=== PATIENT | male | born 1990 | race Caucasian/White ===

== ENCOUNTER 2021-02-18 01:00 | Emergency (ER) | payer SELFPAY ==
[2021-02-18 01:35] LABS: BASOPHIL 0.6 % (0-2); HCT 35.9 % (42.0-52.0); HGB 12.7 g/dl (13.2-18.0); LYMPHOCYTE 38.9 % (15-48); MCH 31.1 pg (25.0-31.0); MCHC 35.4 g/dL (32.0-36.0); MCV 87.8 fL (78.0-100.0); MONOCYTE 10.6 % (0-12); MPV 10.7 fL (6.0-9.5); NEUTROPHIL 46.6 % (41-80); NRBC 0; PLT 218 K/uL (150-400); RBC 4.09 M/uL (4.70-6.00); RDW 12.4 % (11.5-14.0); WBC 8.9 K/uL (4.0-10.5)
[2021-02-18 01:58] LABS: ALBUMIN 3.3 g/dL (3.4-5.0); ALKALINE PHOSHATASE 102 U/L (46-116); ALT 93 U/L (16-63); AST 46 U/L (15-37); BILIRUBIN - TOTAL 0.5 mg/dL (0.2-1.0); BUN 21 mg/dL (7-18); BUN/CREAT RATIO (CALC) 26.9 RATIO; CHLORIDE 107 mmol/L (98-107); CO2 (BICARBONATE) 27 mmol/L (21-32); CREATININE 0.78 mg/dL (0.67-1.17); GLOBULIN (CALCULATION) 3.6 g/dL; GLUCOSE 94 mg/dL (74-106); POTASSIUM 3.5 mmol/L (3.5-5.1); TOTAL PROTEIN 6.9 g/dL (6.4-8.2)
[2021-02-18 02:01] LABS: AMPHETAMINES NEGATIVE (NEGATIVE); BARBITURATES NEGATIVE (NEGATIVE); ECSTASY (MDMA) NEGATIVE (NEGATIVE); MARIJUANA (THC) POSITIVE (NEGATIVE); METHADONE NEGATIVE (NEGATIVE); OPIATES NEGATIVE (NEGATIVE); OXYCODONE NEGATIVE (NEGATIVE)
[2021-02-18 02:03] LABS: ACETAMINOPHEN (TYLENOL) < 2.0 ug/mL (10.0-30.0)
== END 2021-02-18 04:31 ==
LOC: FER 01:00
PROVIDERS: Emergency Medicine
DX: F19.90 Other psychoactive substance use, unspecified, uncomplicated (principal)
CPT/HCPCS: 36415; 70450; 80053; 80305; 85025; G0480; J2310